=== PATIENT | female | born 1995 | race Caucasian/White ===

== ENCOUNTER 2020-02-19 11:33 | Emergency (ER) | payer SELFPAY ==
[~2020-02-19] VITALS: Ht 172.7 cm; Wt 90.7 kg
== END 2020-02-19 13:02 | disposition home or self-care (01) ==
LOC: ED 11:33
DX: J20.8 Acute bronchitis due to other specified organisms (principal)
CPT/HCPCS: 71045; 94640; 94664; 99284-25